=== PATIENT | female | born 1995 | race American Indian/Alaskan Native ===

== ENCOUNTER 2021-10-30 11:32 | Emergency (ER) | payer MEDICAID ==
[2021-10-30 12:51] LABS: Hematocrit 27.2 % (30.3-42.9); Hemoglobin 8.6 gm/dl (10.1-14.3); Mean Corpuscular HGB Conc 32 % (30-34); Platelet Count 460 K/mm3 (140-440); Red Blood Count 4.11 M/mm3 (3.65-5.03); Red Cell Distribution Width 18.4 % (13.2-15.2)
[2021-10-30 12:52] LABS: Mean Corpuscular Volume 66 fl (79-97)
[2021-10-30 13:09] LABS: Alanine Aminotransferase 8 units/L (7-56); Albumin 4.8 g/dL (3.9-5); Blood Urea Nitrogen 6 mg/dL (7-17); Calcium 9.9 mg/dL (8.4-10.2); Hemolysis Index 1
[2021-10-30 13:15] LABS: BUN/Creatinine Ratio 15
--- NOTE | 2021-10-30 13:32 | Electrocardiograph Report ---
[facility] Test Date: 2021-10-30 Test Time: 11:41:54 Pat Name: JULIO BUNCH Department: Room: Gender: F [employer] Hel[employer]: DAVE : 1995 Requested By: TONY JOHNSON Order Number: [id number] Reading MD: Cristopher Morrison Measurements Intervals [place] Rate: 78 P: VA: QRS: 71 QRSD: 82 T: 5 QT: 361 QTc: 412 Interpretive Statements Rythm most likely sinus,with short VA vs atrial rhthm. Baseline artifacts noted. No previous ECG available for comparison Electronically Signed On 10-30-2021 13:32:25 EDT by Cristopher Morrison
[2021-10-30 14:28] LABS: HCG Qualitative,Urine Negative (Negative)
[2021-10-30 14:31] LABS: Bilirubin,Urine NEG (Negative); Blood,Urine NEG (Negative); Color,Urine Yellow (Yellow); Protein,Urine <15 mg/dL mg/dL (Negative); Urobilinogen,Urine < 2.0 mg/dL (<2.0)
[2021-10-30 14:36] LABS: Bacteria,Urine 1+ /HPF (Negative); Mucus,Urine FEW /HPF
[2021-10-30 15:02] VITALS: BP 133/82
--- NOTE | 2021-10-30 15:03 | XRay Report ---
CHEST 2 VIEWS INDICATION / CLINICAL INFORMATION: chest pain. COMPARISON: None available. FINDINGS: SUPPORT DEVICES: None. HEART / MEDIASTINUM: No significant abnormality. LUNGS / PLEURA: No significant pulmonary or pleural abnormality. No pneumothorax. ADDITIONAL FINDINGS: No significant additional findings. IMPRESSION: 1. No acute findings. Signer Name: Ike Duque MD Signed: 10/30/2021 2:58 PM Workstation Name: [id number]
--- NOTE | 2021-10-30 15:12 | Cat Scan Report ---
CT HEAD WITHOUT CONTRAST INDICATION / CLINICAL INFORMATION: syncope. TECHNIQUE: All CT scans at this location are performed using CT dose reduction for ALARA by means of automated e xposure control. COMPARISON: None available. FINDINGS: HEMORRHAGE: No evidence of intracranial hemorrhage or extra-axial fluid collection. EXTRA-AXIAL SPACES: Cortical sulci, sylvian fissures and basilar cisterns have an unremarkable appear ance. VENTRICULAR SYSTEM: The third and lateral ventricles are of normal size and configuration. CEREBRAL PARENCHYMA: No areas of abnormal brain parenchymal attenuation are identified. There is no i ndication of recent infarction. MIDLINE SHIFT OR HERNIATION: There is no mass effect. CEREBELLUM / BRAINSTEM: Brainstem and cerebellum have an unremarkable appearance. MIDLINE STRUCTURES:No abnormalities of the pituitary gland or pineal region are identified. INTRACRANIAL VESSELS:No abnormalities are identified on this noncontrast head CT. ORBITS: visualized portions of the orbits have an unremarkable appearance. SOFT TISSUES of HEAD: No significant abnormality. CALVARIUM: Evaluation of bone windows reveals no abnormalities. PARANASAL SINUSES / MASTOID AIR CELLS: Visualized portions of the paranasal sinuses are free from inf lammatory mucosal disease. Mastoid air cells are normally pneumatized. ADDITIONAL FINDINGS: None. IMPRESSION: 1. No significant intracranial abnormality. Signer Name: Hilario Lyons MD Signed: 10/30/2021 3:07 PM Workstation Name: [id number]
--- NOTE | 2021-10-30 15:52 | Emergency Department Report ---
ED Chest Pain HPI - General Chief Complaint: Chest Pain Stated Complaint: HAVING REALLY BAD CHEST PAINS Time Seen by Provider: 10/30/21 13:37 Source: patient Mode of arrival: Ambulatory Limitations: No Limitations - History of Present Illness Initial Comments: 26-year-old black female with a history of anemia presents to the emergency department for evaluation of 2-week history of chest pain, shortness of breath, and dizziness. She states that pain has been persistent to her midsternal to left chest area, nonradiating and worse with breathing and palpation. 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 She denies head injury and states that she woke right up after passing out. She denies fever, diaphoresis, abdominal pain, nausea, and vomiting. She states that her last menstrual period was October 11. MD Complaint: chest pain -: Gradual, week(s) (2) Onset: during rest, during exertion Pain Location: substernal, left chest Pain Radiation: none Severity: moderate Severity scale (0 -10): 6 Quality: aching, pressure Consistency: intermittent re: nausea, vomting, dyspnea. denies: diaphoresis, sense of impending doom Other Symptoms: syncope. denies: cough, fever, rash, acid taste in mouth, leg swelling, palpitations, burping Treatments Prior to Arrival: none Aspirin use within the Past 7 Days: (0) No - Related Data On Oral Contraceptives: No Previous Rx's Medication Instructions Recorded Last Taken Type Ibuprofen [Motrin 600 MG tab] 600 mg PO TID PRN #30 tab 10/30/21 Unknown Rx cephALEXin [Keflex] 500 mg PO BID #14 cap 10/30/21 Unknown Rx Allergies Allergy/AdvReac Type Severity Reaction Status Date / Time No Known Allergies Allergy Unverified 10/30/21 11:37 Heart Score - HEART Score History: Slightly suspicious EKG: Normal Age: < 45 Risk factors: 1-2 risk factors Troponin: < normal limit HEART Score: 1 - EKG Read Time Time EKG Completed: 11:41 EKG Read Time: 11:45 - Critical Actions Critical Actions: 0-3 pts:0.9-1.7%risk of adverse cardiac event.Candidate for discharge ED Review of Systems ROS: Stated complaint: HAVING REALLY BAD CHEST PAINS Other details as noted in HPI Comment: All other systems reviewed and negative Constitutional: denies: chills, fever Eyes: denies: vision change ENT: denies: congestion Respiratory: shortness of breath, SOB with exertion, SOB at rest. denies: cough, orthopnea, stridor, wheezing Cardiovascular: chest pain, syncope. denies: palpitations, dyspnea on exertion, orthopnea, edema, paroxysmal nocturnal dyspnea Gastrointestinal: denies: abdominal pain, nausea, vomiting, diarrhea, hematemesis, melena, hematochezia Genitourinary: denies: urgency, dysuria, frequency Musculoskeletal: denies: back pain Skin: denies: rash, lesions Neurological: denies: headache, weakness ED Past Medical Hx - Past Medical History Previous Medical History?: Yes Additional medical history: anemia - Surgical History Past Surgical History?: No - Social History Smoking Status: Never Smoker Substance Use Type: None - Medications Home Medications: Home Medications Medication Instructions Recorded Confirmed Last Taken Type Ibuprofen [Motrin 600 MG tab] 600 mg PO TID PRN #30 tab 10/30/21 Unknown Rx cephALEXin [Keflex] 500 mg PO BID #14 cap 10/30/21 Unknown Rx ED Physical Exam - General Limitations: No Limitations General appearance: alert, in no apparent distress - Head Head exam: Present: atraumatic, normocephalic - Eye Eye exam: Present: normal appearance. Absent: conjunctival injection, periorbital swelling, periorbital tenderness - ENT ENT exam: Present: normal exam, normal orophraynx - Neck Neck exam: Present: normal inspection, full ROM. Absent: tenderness, meningismus, lymphadenopathy, thyromegaly - Respiratory Respiratory exam: Present: normal lung sounds bilaterally, chest wall tenderness. Absent: respiratory distress, wheezes, rales, rhonchi, stridor - Cardiovascular Cardiovascular Exam: Present: regular rate, normal rhythm, normal heart sounds - GI/Abdominal GI/Abdominal exam: Present: soft, normal bowel sounds. Absent: distended, tenderness, guarding, rebound, rigid - Extremities Exam Extremities exam: Present: normal inspection, full ROM, normal capillary refill. Absent: tenderness, pedal edema, joint swelling, calf tenderness - Back Exam Back exam: Present: normal inspection. Absent: CVA tenderness (R), CVA tenderness (L), vertebral tenderness - Neurological Exam Neurological exam: Present: alert, oriented X3, CN II-XII intact, normal gait, reflexes normal. Absent: motor sensory deficit - Expanded Neurological Exam Expanded Patient oriented to: Present: person, place, time Speech: Present: fluid speech Cranial nerves: EOM's Intact: Normal, Gag Reflex: Normal, Tongue Deviation: Normal, Nystagmus: Normal, Facial Sensation: Normal Ataxia: Absent: yes Cerebellar function: Finger to Nose: Normal, Heel to Ramirez: Normal, Romberg: Normal Sensory exam: Upper Extremity Light Touch: Normal, Upper Extremity Temperature: Normal, Lower Extremity Light Touch: Normal, Lower Extremity Temperature: Normal Motor strength exam: RUE: 5, LUE: 5, RLE: 5, LLE: 5 Best Eye Response (Brewster): (4) open spontaneously Best Motor Response (B[place]ster): (6) obeys commands Best Verbal Response (Shahriar): (5) oriented Shahriar Total: 15 - Psychiatric Psychiatric exam: Present: normal affect, normal mood - Skin Skin exam: Present: warm, dry, intact, normal color ED Course Vital Signs 10/30/21 10/30/21 10/30/21 11:47 13:51 13:55 Temperature 98.1 F Pulse Rate 86 74 Respiratory 18 18 17 Rate Blood Pressure 134/75 O2 Sat by Pulse 100 100 Oximetry 10/30/21 10/30/21 10/30/21 14:00 14:16 14:30 Temperature Pulse Rate 74 81 79 Respiratory 15 19 14 Rate Blood Pressure 133/82 133/82 133/82 O2 Sat by Pulse 100 100 100 Oximetry 10/30/21 10/30/21 14:46 16:03 Temperature 98.4 F Pulse Rate 78 Respiratory 13 Rate Blood Pressure 133/82 O2 Sat by Pulse 100 Oximetry ALEXEY score - Alexey Score Age > 65: (0) No Aspirin use within the Past 7 Days: (0) No 3 or more CAD Risk Factors: (0) No 2 or more Angina events in past 24 hrs: (1) Yes Known CAD with more than 50% Stenosis: (0) No Elevated Cardiac Markers: (0) No ST Deviation Greater than 0.5mm: (0) No ALEXEY Score: 1 ED Medical Decision Making - Lab Data Result diagrams: 10/30/21 12:24 10/30/21 12:24 - EKG Data EKG shows normal: sinus rhythm - EKG Data Interpretation: no acute changes, normal EKG - Radiology Data Radiology results: report reviewed, image reviewed CT scan of the head without contrast: FINDINGS: HEMORRHAGE: No evidence of intracranial hemorrhage or extra-axial fluid collection. EXTRA-AXIAL SPACES: Cortical sulci, sylvian fissures and basilar cisterns have an unremarkable appearance. VENTRICULAR SYSTEM: The third and lateral ventricles are of normal size and configuration. CEREBRAL PARENCHYMA: No areas of abnormal brain parenchymal attenuation are identified. There is no indication of recent infarction. MIDLINE SHIFT OR HERNIATION: There is no mass effect. CEREBELLUM / BRAINSTEM: Brainstem and cerebellum have an unremarkable appearance. MIDLINE STRUCTURES:No abnormalities of the pituitary gland or pineal region are identified. INTRACRANIAL VESSELS:No abnormalities are identified on this noncontrast head CT. ORBITS: visualized portions of the orbits have an unremarkable appearance. SOFT TISSUES of HEAD: No significant abnormality. CALVARIUM: Evaluation of bone windows reveals no abnormalities. PARANASAL SINUSES / MASTOID AIR CELLS: Visualized portions of the paranasal sinuses are free from inflammatory mucosal disease. Mastoid air cells are normally pneumatized. ADDITIONAL FINDINGS: None. IMPRESSION: 1. No significant intracranial abnormality. Chest x-ray: FINDINGS: SUPPORT DEVICES: None. HEART / MEDIASTINUM: No significant abnormality. LUNGS / PLEURA: No significant pulmonary or pleural abnormality. No pneumothorax. ADDITIONAL FINDINGS: No significant additional findings. IMPRESSION: 1. No acute findings. - Medical Decision Making 26-year-old black female with a history of anemia presents to the emergency department for evaluation of 2-week history of chest pain, shortness of breath, and dizziness. She states that pain has been persistent to her midsternal to left chest area, nonradiating and worse with breathing and palpation. 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 She denies head injury and states that she woke right up after passing out. She denies fever, diaphoresis, abdominal pain, nausea, and vomiting. She states that her last menstrual period was October 11 Physical exam unremarkable. EKG without any acute ischemic changes noted, chest x-ray without any acute abnormalities noted, CT of head without any acute abnormalities noted, troponin negative, negative test, labs without any gross abnormalities noted. Patient was noted to have urinary tract infection. Patient will be treated with 7-day course of Keflex for urinary tract infection and advised to follow-up with cardiology and neurology, and her primary care provider for further evaluation and management. She is advised to return to the emergency department as needed. Critical care attestation.: If time is entered above; I have spent that time in minutes in the direct care of this critically ill patient, excluding procedure time. ED Disposition Clinical Impression: Chest pain Qualifiers: Chest pain type: unspecified Qualified Code(s): R07.9 - Chest pain, unspecified UTI (urinary tract infection) Qualifiers: Urinary tract infection type: acute cystitis Hematuria presence: without hematuria Qualified Code(s): N30.00 - Acute cystitis without hematuria Disposition: HOME / SELF CARE / HOMELESS Is pt being admited?: No Does the pt Need Aspirin: No Condition: Stable Instructions: Antibiotic Medicine, Adult, [id number], Chest Wall Pain, [id number], Urinary Tract Infection, Adult, [id number], Nonspecific Chest Pain, Adult, [id number] Additional Instructions: Medications as prescribed. Follow-up with primary care provider, neurology, and cardiology for further evaluation and management. Return to the emergency depar tment as needed. Prescriptions: cephALEXin [Keflex] 500 mg PO BID #14 cap Ibuprofen [Motrin 600 MG tab] 600 mg PO TID PRN #30 tab PRN Reason: Pain, Moderate (4-6) Referrals: CECILE HORTON MD [Primary Care Provider] - 3-5 Days DAPHNEY SIMS MD [Staff Physician] - 3-5 Days ALFRED ROGERS MD [Staff Physician] - 3-5 Days DENIS SERVIN MD [Referring] - 3-5 Days Forms: Work/School Release Form(ED) Time of Disposition: 15:52
== END 2021-10-30 17:14 | disposition home or self-care (01) ==
LOC: ED 11:32
DX: R07.9 Chest pain, unspecified (principal); N39.0 Urinary tract infection, site not specified; Z79.899 Other long term (current) drug therapy
CPT/HCPCS: 36415; 70450; 71046; 80053; 81001; 81025; 84484; 85027; 87086; 93005; 99284